=== PATIENT | female | born 1970 | race Two or more races ===

== ENCOUNTER 2024-09-25 17:22 | Emergency (ER) | payer OTHER ==
[~2024-09-25] VITALS: Ht 172.7 cm; Wt 84.4 kg
[2024-09-25] MEDS ORDERED: KETOROLAC TROMETHAMINE 60 MG VIAL IM ONE (18:30)
[2024-09-25] MEDS ORDERED: TRAM1TAB98 PO ×3 (18:35→18:40)
== END 2024-09-25 18:54 | disposition home or self-care (01) ==
LOC: ER 17:22
DX: K64.8 Other hemorrhoids (principal)